=== PATIENT | female | born 1990 | race Two or more races ===

== ENCOUNTER 2023-10-05 14:25 | Emergency (ER) | payer SELFPAY ==
[~2023-10-05] VITALS: Ht 162.6 cm; Wt 59.0 kg
[2023-10-05] MEDS ORDERED: LORAZEPAM 2 MG/1 ML VIAL ONE (14:54)
[2023-10-05 15:03] LABS: BASOPHILS % (AUTO) 0.6 % (0.0-2.0); EOSINOPHILS # (AUTO) 0.1 K/uL (0.0-0.7); EOSINOPHILS % (AUTO) 1.2 % (0.0-7.0); HEMATOCRIT 47.1 % (31.2-41.9); HEMOGLOBIN 16.2 g/dL (10.9-14.3); LYMPHOCYTES # (AUTO) 3.4 K/uL (0.8-4.8); LYMPHOCYTES % (AUTO) 42.6 % (20.5-51.5); MEAN CORPUSCULAR HEMOGLOBIN 32.3 uug (24.7-32.8); MEAN CORPUSCULAR HGB CONC 35 g/dL (32.3-35.6); MEAN CORPUSCULAR VOLUME 93.8 fL (75.5-95.3); MONOCYTES # (AUTO) 0.2 K/uL (0.1-1.30); MONOCYTES % (AUTO) 2.1 % (0.0-11.0); NEUTROPHILS # (AUTO) 4.3 K/uL (1.8-8.9); NEUTROPHILS % (AUTO) 53.5 % (38.5-71.5); PLATELET COUNT (AUTO) 415 K/uL (179-408); RED BLOOD CELL COUNT(AUTO) 5.02 MIL/uL (3.63-4.92); RED CELL DISTRIBUTION WIDTH 15.1 % (12.3-17.7)
[2023-10-05] MEDS ORDERED: THIAMINE HCL 200 MG/2 ML VIAL ONE (15:03)
[2023-10-05] MEDS: LORAZEPAM 2 MG/1 ML VIAL IV ONE (15:08)
[2023-10-05] MEDS: IV D5 1/2 NS 1000 ML 1,000 ML IV ONE (15:09)
[2023-10-05 15:10] LABS: ALANINE AMINOTRANSFERASE 24 U/L (14-59); ALBUMIN 4.2 g/dL (3.4-5.0); ALKALINE PHOSPHATASE 64 U/L (50-136); ASPARTATE AMINOTRANSFERASE 49 U/L (15-37); BILIRUBIN,DIRECT < 0.1 mg/dL (0.0-0.2); BILIRUBIN,TOTAL 0.4 mg/dL (0.2-1.0); CALCIUM 9.1 mg/dL (8.5-10.1); CARBON DIOXIDE 28 mmol/L (21-32); CHLORIDE 104 mmol/L (98-107); CREATININE 0.4 mg/dL (0.6-1.3); GLUCOSE 84 mg/dL (74-106); SODIUM SERUM 144 mmol/L (136-145); TOTAL PROTEIN, SERUM 9.4 g/dL (6.4-8.2); UREA NITROGEN, BLOOD 11 mg/dL (7-18)
[2023-10-05] MEDS: IV NORMAL SALINE 1000 ML BAG IV ONE (15:10)
[2023-10-05] MEDS: THIAMINE HCL 200 MG/2 ML VIAL IV ONE (15:10)
[2023-10-05 15:11] LABS: DIFFERENTIAL COMMENT 1
[2023-10-05 15:19] LABS: ETHANOL 422 MG/DL (0-10)
[2023-10-05 17:14] LABS: CALCIUM 7.7 mg/dL (8.5-10.1); CARBON DIOXIDE 29 mmol/L (21-32); CHLORIDE 108 mmol/L (98-107); CREATININE 0.5 mg/dL (0.6-1.3); GLUCOSE 160 mg/dL (74-106); POTASSIUM 3.4 mmol/L (3.5-5.1); SODIUM SERUM 146 mmol/L (136-145); UREA NITROGEN, BLOOD 10 mg/dL (7-18)
[2023-10-05 18:22] VITALS: BP 145/107; TEMP 206.6; O2SAT 98
== END 2023-10-05 18:23 | disposition home or self-care (01) ==
LOC: ER 14:26
DX: F10.129 Alcohol abuse with intoxication, unspecified (principal); R51.9 Headache, unspecified; Y90.0 Blood alcohol level of less than 20 mg/100 ml
CPT/HCPCS: 36415; 70450; 71045; 83735; 85025; A4606; A4663; G0480; J2060; J3411; J7040